=== PATIENT | female | born 1975 | race Hispanic/Latino ===

== ENCOUNTER 2021-05-19 12:13 | Outpatient (CLI) | payer OTHER ==
--- NOTE | 2021-05-19 15:24 | Ultrasound Report ---
BILATERAL DIGITAL DIAGNOSTIC MAMMOGRAM WITH CAD CONVENTIONAL, 05/19/2021 RIGHT LIMITED BREAST ULTRASOUND CLINICAL INFORMATION / INDICATION: Right palpable abnormality TECHNIQUE: Digital bilateral mammographic imaging was performed. Spot compression views were obtained . Limited ultrasound was performed. This examination was interpreted with the benefit of Computer-Aid ed Detection (CAD) analysis. COMPARISON: None available FINDINGS: Breast Density: The breasts are heterogeneously dense, which may obscure small masses. MAMMOGRAPHIC FINDINGS: No abnormalities are seen in the area of indicated palpable concern on the rig ht. A 10 mm nodule is seen posteriorly in the upper outer right breast. ULTRASOUND FINDINGS: Targeted ultrasound evaluation was performed of the area of interest. No abnorma lities are seen in the area of palpable concern. In the area of the mammographic nodule in the upper outer right breast at 10:00, 9 cm from the nipple, an 8 mm mildly complicated cyst is seen. On origin al images this had a suspicion of shadowing but after discussion with the technologist additional frank ges were obtained including cine loops which show no significant shadowing and moderate through trans mission. There appear to be mild internal echoes. No other suspicious characteristics are seen. No va scularity is noted. I believe this is a mildly complicated cyst. IMPRESSION: 1. No abnormalities are seen in the area of palpable concern by mammography or ultrasound. Clinical f ollow-up is suggested. 2. Mildly complicated cyst in the upper outer right breast. Recommend follow-up right breast ultrasou nd in 6 months. Follow up recommendation: As above BI-RADS Category 3: Probably Benign. Followup in 6 months. A "normal" or negative report should not discourage follow up or biopsy of a clinically significant f inding. A written summary of these findings will be mailed to the patient. The patient will be entered into a mammography reporting system which will generate a reminder letter for the patient's next appointmen t at the appropriate interval. According to the [employer], yearly mammograms are recommended starting at age 40 and continuing as long as a woman is in good health. Breast MRI is recommended for women with an sidney roximately 20-25% or greater lifetime risk of breast cancer, including women with a strong family his tory of breast or ovarian cancer and women who have been treated for Hodgkin's disease. Signer Name: Fidel Winn MD Signed: 05/19/2021 3:19 PM Workstation Name: [id number]
== END 2021-05-19 12:14 | disposition home or self-care (01) ==
LOC: MAMMO 12:13
PROVIDERS: ATTEND Specialist
DX: N63.11 Unspecified lump in the right breast, upper outer quadrant (principal); N60.01 Solitary cyst of right breast
CPT/HCPCS: 77066